=== PATIENT | female | born 1975 | race Caucasian/White ===

== ENCOUNTER → 2017-05-26 | Outpatient (CLI) | payer OTHER ==
[~2017-05-26] MED LIST: AUGMENTIN 875875 MG PO; BENTYL20 MG PO; NOHOMEMEDICATIONS; PREDNISONE 20 M20 M1 PO; PROMETHAZINE-D120 ML PO; VENTOLIN HFA 1818 GM INH
== END ==
LOC: M.MRI 14:12
DX: N63.10 Unspecified lump in the right breast, unspecified quadrant (principal); R59.0 Localized enlarged lymph nodes

== ENCOUNTER → 2017-06-02 | Outpatient (CLI) | payer OTHER | LOC: M.RAD 09:40 | DX: N60.01 Solitary cyst of right breast (principal) ==

== ENCOUNTER → 2017-06-09 | Outpatient (CLI) | payer OTHER ==
--- NOTE | 2017-06-11 10:20 | S ---
[facility] [address] [place] [address] SURGICAL PATH RPT PROCEDURE Name: VARGAS AFITH Room: [facility]#: [id number] Admission: 06/09/17 Date of : 79 Discharge: Report #: [id number] Path Case #: [id number] PATHOLOGY REPORT COLLECTION DATE: 06/09/2017 RECEIVED DATE: 06/09/2017 SUBMITTING PHYS: Dr. Blade Cohn OTHER PHYS: Dr. 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 See comment. COMMENT: Approximately 80 % of the submitted tissues represents the fibroepithelial lesion. Reviewed with Dr. Evelio Galloway, who agrees with the diagnosis. (ANDRÉS:db; 06/10/2017) PATHOLOGIST: Dinesh Stoll M.D. REPORT ELECTRONICALLY SIGNED BY: Dinesh Stoll M.D. DATE/TIME: 06/11/2017 10:20 * * * * * * * * * * * * GROSS PATHOLOGY: Received in formalin labeled "Vargas Faith, right breast biopsy 8 cm from nipple" and consists of several soft yellow and white tissue cores/fragments aggregating to 2.3 x 1.4 x 0.5 cm. The cold ischemic time is unknown. The formalin fixation time is approximately 11 hours. The specimen is totally submitted A1-A3. (CEZAR; 06/09/2017) CLINICAL HISTORY: Right breast mass, 800, 8 cm FN, 1.7 x 0.63 x 1.5 INITIAL CPT CODE(S): A; 57950 Professional services performed by [facility] [place] [address] SURGICAL PATH RPT PROCEDURE Name: VARGAS FAITH Room: [facility]#: [id number] Admission: 06/09/17 Date of : 79 Discharge: Report #: [id number] Path Case #: [id number] Technical services performed by [facility] at [address] [place] [address], [facility] [address] [address]. [facility] [address] [place] [address] PHONE: [phone] DIRECTOR: Kenneth Frias M.D. * * * END OF REPORT * * *
== END | disposition home or self-care (01) ==
LOC: M.ULTRA 07:58
DX: D24.1 Benign neoplasm of right breast (principal)

== ENCOUNTER 2021-01-25 12:08 | Emergency (ER) | payer BC ==
[~2021-01-25] VITALS: Ht 167.6 cm; Wt 122.5 kg
[2021-01-25 16:01] LABS: URINE BILIRUBIN NEGATIVE (Negative); URINE BLOOD NEGATIVE (Negative); URINE CLARITY CLEAR; URINE COLOR YELLOW; URINE GLUCOSE-RANDOM NEGATIVE (Negative); URINE KETONES NEGATIVE (Negative); URINE LEUKOCYTES-REFLEX NEGATIVE (Negative); URINE NITRITE-REFLEX NEGATIVE (Negative); URINE PROTEIN TRACE (Negative); URINE SPECIFIC GRAVITY 1.015 (1.005-1.030); URINE UROBILINOGEN 0.2 E.U./dl (0.2-1.0)
[2021-01-25 16:21] LABS: ABSOLUTE MONOCYTES 0.5 thou/uL (0.0-1.2); ABSOLUTE NEUTROPHILS 5.8 thou/uL (1.6-8.1); BASOPHILS 0.6 %; EOSINOPHILS 0.3 %; HEMATOCRIT 37.3 % (37.0-47.0); HEMOGLOBIN 12.7 gm/dL (12.0-15.0); LYMPHOCYTES 13.5 %; MCH 30.9 pg (26.0-34.0); MCHC 34.1 g/dL (28.0-37.0); MCV 90.5 fL (80.0-100.0); MONOCYTES 6.8 %; MPV 9.1 fl. (7.2-11.1); NUCLEATED RBCS 0 /100WBC; PLATELET COUNT* 270 thou/uL (150-400); POLYS 78.8 %; RBC 4.12 mil/uL (4.20-5.00); RDW-CV 13.2 % (10.5-14.5); WBC 7.4 thou/uL (4.0-11.0)
[2021-01-25 16:31] LABS: CALCIUM 8.1 mg/dL (8.5-10.1); POTASSIUM 3.7 mmol/L (3.5-5.1)
[2021-01-25 16:35] LABS: ALBUMIN 3.3 g/dL (3.4-5.0); TOTAL BILIRUBIN 0.2 mg/dL (<0.1-1.0); TOTAL PROTEIN 7.1 g/dL (6.4-8.2)
[2021-01-25] MEDS ORDERED: ONDANSETRON ODT4 MG PO (16:40)
[2021-01-25] MEDS ORDERED: APAP W/CODEINE1 TA2 PO (16:40)
[2021-01-25 17:12] VITALS: BP 122/68
== END 2021-01-25 17:13 | disposition home or self-care (01) ==
LOC: M.ERS 12:08
PROVIDERS: Physician Assistant
DX: R11.2 Nausea with vomiting, unspecified (principal); E66.01 Morbid (severe) obesity due to excess calories; Z68.41 Body mass index [BMI] 40.0-44.9, adult